=== PATIENT | male | born 1975 | race Caucasian/White ===

== ENCOUNTER → 2017-11-15 15:04 | Outpatient (CLI) | payer MEDICAID, SELFPAY ==
[2017-11-15 15:08] LABS: Microscopic, Urine URINE MICROSCOPIC (MICROSCOPIC)
--- NOTE | 2017-11-15 15:23 | XR_ITS ---
XR lumbar spine min 4V COMPARISON: Lumbar spine 06/20/2016 HISTORY: Low back pain TECHNIQUE: AP lateral and oblique views and spot view lumbosacral junction FINDINGS: There is normal curvature and alignment. All lumbar vertebrae appear intact. Again noted is minor spurring of the anterior superior border of L4. There is no pars defect. SI joints are normal. IMPRESSION: Very minor degenerative change at the L3-4 level otherwise normal study
[2017-11-15 15:29] LABS: Basophils # 0.1 K/mm3 (0-0.2); Basophils % 0.8 % (0.1-2.0); Eosinophils # 0.2 K/mm3 (0.0-0.4); Eosinophils % 2.5 % (0.1-12.0); Hematocrit 50.2 % (42.0-52.0); Hemoglobin 16.1 g/dL (14.1-18.0); Lymphocytes % 27.4 K/mm3 (10-50); Mean Corpuscular HGB Conc 32.1 g/dL (31.8-35.4); Mean Corpuscular Hemoglobin 28.6 pg (27.0-31.2); Mean Corpuscular Volume 89.1 fl (80-94); Mean Platelet Volume 7.6 fl (7.4-10.4); Monocytes # 0.4 K/mm3 (0.1-1.0); Neutrophils # 4.5 K/mm3 (1.8-7.8); Neutrophils % 63.3 % (37.0-80.0); Platelet Count 315 K/mm3 (142-424); Red Blood Count 5.63 M/mm3 (4.60-6.20); White Blood Count 7.1 K/mm3 (4.8-10.8)
[2017-11-15 15:30] LABS: Appearance,Urine SL CLOUDY (Clear); Bilirubin,Urine Negative (Negative); Blood, Urine TRACE-I (Negative); Color,Urine YELLOW (Yellow); Glucose,Urine (UA) Negative (Negative); Ketones,Urine Negative (Negative); Leukocyte Esterase,Urine 1+ (Negative); Nitrate,Urine Negative (Negative); Protein,Urine Negative (Negative); Specific Gravity, Urine 1.025 (1.005-1.030); Urobilinogen,Urine 0.2 EU/dl (0.2)
[2017-11-15 16:36] LABS: Bacteria,Urine 1+ /lpf; Mucus,Urine 2+ /lpf; Trichomonas,Urine 2+ /lpf; WBC,Urine 20-50 #/hpf (0-3)
[2017-11-15 18:38] LABS: Alanine Aminotransferase 35 U/L (12-78); Albumin Level 4.2 gm/dL (3.4-5.0); Albumin/Globulin Ratio 1.1 (1.1-1.8); Alkaline Phosphatase 104 U/L (46-116); Anion Gap 13.6 mEq/L (5-15); Aspartate Amino Transferase 15 U/L (15-37); Bilirubin,Total 0.7 mg/dL (0.2-1.0); Blood Urea Nitrogen 13 mg/dL (7-18); Calcium 8.9 mg/dL (8.5-10.1); Carbon Dioxide 28 mmol/L (21.0-32.0); Chloride 104 mmol/L (98-107); Creatinine,Serum 1.08 mg/dL (0.70-1.30); Estimated Glomerular Filt Rate 75 ml/min (>60); GFR (African American) 91 ML/MIN (>60); Globulin 3.8 gm/dl (1.3-3.2); Glucose 103 mg/dL (74-106); Potassium 4.6 mmoL/L (3.5-5.1); Sodium 141 mmol/L (136-145)
[2017-11-17 18:50] LABS: HIV Screen 4th Generation wRfx Non Reactive (Non Reactive); Rapid Plasma Reagin Ab Titer Non Reactive (NonRea<1:1)
[2017-11-19 06:24] LABS: Neisseria gonorrhoeae, NAA Negative (Negative)
== END ==
PROVIDERS: PCP Internal Medicine Adolescent Medicine; Visit Provider Internal Medicine Adolescent Medicine
DX: K21.9 Gastro-esophageal reflux disease without esophagitis (principal); N34.2 Other urethritis; M54.5 Low back pain; Z00.00 Encounter for general adult medical examination without abnormal findings
CPT/HCPCS: 36415; 72110; 80053; 81001; 85025; 86592; 86703; 87086; 87491; 87591; G0432

== ENCOUNTER → 2018-01-02 09:22 | Outpatient (CLI) | payer MEDICAID, SELFPAY ==
--- NOTE | 2018-01-02 09:22 | US_ITS ---
US gallbladder HISTORY: Epigastric pain with tenderness ITS.REASON: EPIGASTRIC PAIN ORDERING PHYSICIAN: Landon Escobar MD PATIENT AGE: 42 years FINDINGS: PANCREAS: Unremarkable. No obvious mass or abnormal fluid collection. No ductal dilatation LIVER: There is increased echogenicity of the liver consistent with fatty liver involvement. No focal liver lesions demonstrated. RIGHT KIDNEY: Unremarkable. Normal size and echogenicity. No hydronephrosis GALLBLADDER: No shadowing stones evident. There is a small amount of gallbladder sludge. No pericholecystic fluid, Howard dilatation, or gallbladder wall thickening. IMPRESSION: 1. Fatty liver. 2. Gallbladder sludge versus concentrated bile. 3. No gallstones apparent
--- NOTE | 2018-01-02 09:22 | FL_ITS ---
FL upper GI esophagus w/air HISTORY: Stomach pain with mid epigastric pressure and reflux with choking ITS.REASON: DYSPHAGIA ORDERING PHYSICIAN: Landon Escobar MD PATIENT AGE: 42 years FINDINGS: The esophagus has an unremarkable appearance. The esophagus, stomach, and duodenum have an unremarkable appearance. There is no evidence of hiatal hernia. No ulcer or mass evident. No mucosal abnormalities apparent. There is normal peristalsis. The duodenal C-loop is nondisplaced. FLUOROSCOPY TIME : 1 minute and 55 seconds IMPRESSION: 1. Negative esophagram. 2. Negative upper GI
== END ==
PROVIDERS: PCP Internal Medicine Adolescent Medicine; Visit Provider Surgery
DX: R13.10 Dysphagia, unspecified (principal); R10.13 Epigastric pain
CPT/HCPCS: 74241; 76705

== ENCOUNTER → 2018-01-16 12:34 | Outpatient (CLI) | payer MEDICAID, SELFPAY ==
[2018-01-18 18:40] LABS: Testosterone,Free 5.4 pg/mL (6.8-21.5)
[2018-01-20 06:09] LABS: Testosterone, Total, LC/MS 271.3 ng/dL (264.0-916.0)
== END ==
PROVIDERS: Visit Provider Urology
DX: R68.82 Decreased libido (principal)
CPT/HCPCS: 36415; 84402

== ENCOUNTER → 2018-01-28 09:05 | Outpatient (CLI) | payer MEDICAID, SELFPAY | PROVIDERS: PCP Internal Medicine Adolescent Medicine; Visit Provider Surgery | DX: R13.10 Dysphagia, unspecified; Z01.810 Encounter for preprocedural cardiovascular examination | CPT/HCPCS: 93005 ==

== ENCOUNTER → 2018-02-10 09:47 | Outpatient (CLI) | payer MEDICAID, SELFPAY ==
--- NOTE | 2018-02-10 09:48 | NM_ITS ---
NM gastric emptying study CLINICAL INDICATION: Bloating and abdominal pain ITS.REASON: ACID REFLUX ORDERING PHYSICIAN: Landon Escobar MD PATIENT AGE: 42 years Comparison: None DOSE: Radio labeled meal with 0.53 mCi technetium sulfur colloid FINDINGS: Time activity curve is generated following ingestion of radiolabeled meal. T1 half emptying time is prolonged at 147 minutes with normal being 60 +/- 30 minutes. Only 29% of the contents had emptied at 90 minutes IMPRESSION: Gastroparesis
== END ==
PROVIDERS: PCP Internal Medicine Adolescent Medicine; Visit Provider Surgery
DX: K21.9 Gastro-esophageal reflux disease without esophagitis (principal)
CPT/HCPCS: 78264; A9541

== ENCOUNTER → 2018-04-18 10:00 | Outpatient (CLI) | payer MEDICAID, SELFPAY ==
[2018-04-18 11:09] VITALS: PULSE 74
== END ==
PROVIDERS: PCP Internal Medicine Adolescent Medicine; Visit Provider Internal Medicine Adolescent Medicine
DX: R06.00 Dyspnea, unspecified (principal)
CPT/HCPCS: 94060; 94640; 94726; 94729

== ENCOUNTER → 2018-07-31 08:19 | Outpatient (CLI) | payer MEDICAID, SELFPAY ==
[2018-08-06 06:26] LABS: Testosterone, Total, LC/MS 281.8 ng/dL (264.0-916.0); Testosterone,Free 4.5 pg/mL (6.8-21.5)
== END ==
PROVIDERS: Visit Provider Urology
DX: E29.1 Testicular hypofunction (principal)
CPT/HCPCS: 36415; 84402; 84403

== ENCOUNTER 2019-01-08 11:00 | Outpatient (RCR) | payer MEDICAID, SELFPAY | END 2019-01-08 11:05 | disposition home or self-care (01) | LOC: PT 11:00 | PROVIDERS: Visit Provider Orthopaedic Surgery Adult Reconstructive Orthopaedic Surgery | DX: M25.561 Pain in right knee (principal) | CPT/HCPCS: 97010; 97014; 97110; 97163; G0283 ==

== ENCOUNTER → 2019-02-20 13:54 | Outpatient (CLI) | payer MEDICAID, SELFPAY ==
[2019-02-26 13:30] LABS: Testosterone,Free 21.7 pg/mL (6.8-21.5)
== END ==
PROVIDERS: Visit Provider Urology
DX: E34.9 Endocrine disorder, unspecified (principal)
CPT/HCPCS: 36415; 84402; 84403